=== PATIENT | male | born 1970 | race Caucasian/White ===

== ENCOUNTER 2023-02-22 08:01 | Outpatient (RCR) | payer MEDICARE, MEDICAID, SELFPAY | END 2023-05-03 09:35 | disposition home or self-care (01) | LOC: HO.WCC 08:01 | PROVIDERS: PCP Internal Medicine Infectious Disease; Visit Provider Physician Assistant | DX: Z09 Encounter for follow-up examination after completed treatment for conditions other than malignant neoplasm (principal); E10.51 Type 1 diabetes mellitus with diabetic peripheral angiopathy without gangrene; E10.22 Type 1 diabetes mellitus with diabetic chronic kidney disease; N18.6 End stage renal disease; F17.290 Nicotine dependence, other tobacco product, uncomplicated; Z99.2 Dependence on renal dialysis; Z87.2 Personal history of diseases of the skin and subcutaneous tissue | CPT/HCPCS: 11042; 97602; 99203; 99212 ==